=== PATIENT | male | born 1990 | race Caucasian/White ===

== ENCOUNTER 2020-02-28 07:23 | Emergency (ER) | payer OTHER, SELFPAY ==
[2020-02-28 08:19] LABS: Urine Blood NEGATIVE (NEG); Urine Glucose NEGATIVE (NEG); Urine Protein NEGATIVE (NEG)
[2020-02-28 08:21] LABS: Urine Amorphous Sediment 1+ /HPF (NONE SEEN); Urine Bacteria NONE SEEN /HPF (NONE SEEN); Urine Culture Reflex Order NOT NEEDED; Urine RBC <5 /HPF (NONE SEEN)
--- NOTE | 2020-02-28 08:56 | RAD REPORT ---
EXAM DESCRIPTION: US - Scrotum Testicles - 02/28/2020 8:43 am CLINICAL HISTORY: left scrotal pressure Left-sided testicular pain and swelling. COMPARISON: SCROTUM TESTICLES dated 12/09/2011 FINDINGS: The right testicle 4.2 x 3.1 x 2.0 cm. No intratesticular masses or evidence of testicular torsion. The left testicle 4.0 x 3.2 x 2.1 cm. No intratesticular masses or evidence of testicular torsion. Both epididymides are normal in size and appearance. No pathologic fluid collections. IMPRESSION: Unremarkable study.
[2020-02-28 09:01] LABS: Basophils % 1.1 % (0-1.3); Hematocrit 48.5 % (39.6-49.0); Lymphocytes % 27.4 % (15.3-44.8); MPV 9.1 fL (7.6-11.3); RBC Red Blood Cell Count 5.19 M/uL (4.33-5.43)
[2020-02-28 09:21] LABS: ALT/SGPT 47 U/L (12-78); AST/SGOT 30 U/L (15-37); Albumin 4.5 g/dL (3.4-5.0); Alkaline Phosphatase 69 U/L (45-117); BUN Blood Urea Nitrogen 12 mg/dL (7-18); Bicarbonate 29 mmol/L (21-32); Bilirubin Direct 0.2 mg/dL (0-0.2); Bilirubin Total 0.6 mg/dL (0.2-1.0); Glucose Level 105 mg/dL (74-106); Lipase 124 U/L (73-393); Potassium 4.3 mmol/L (3.5-5.1); Protein, Total 8.6 g/dL (6.4-8.2); Sodium Level 140 mmol/L (136-145)
--- NOTE | 2020-02-28 09:48 | RAD REPORT ---
EXAM DESCRIPTION: CTAbdomen Pelvis W Contrast - 02/28/2020 9:11 am CLINICAL HISTORY: Abdominal pain. lower abd pain COMPARISON: No comparisons TECHNIQUE: Biphasic CT imaging of the abdomen and pelvis was performed with 100 ml non-ionic IV cont rast. All CT scans are performed using dose optimization technique as appropriate and may include automated exposure control or mA/KV adjustment according to patient size. FINDINGS: The lung bases are clear. The liver, spleen, pancreas, adrenal glands and kidneys are within normal limits. No bowel obstruction, free air, free fluid or abscess. Mild stool is present in the colon. The append ix is normal. No evidence of significant lymphadenopathy. No suspicious bony findings. IMPRESSION: No acute intra-abdominal or pelvic finding.
--- NOTE | 2020-02-28 09:52 | EDPHYS ---
Physician Documentation [facility] Name: Zackary Aldana Jr Age: 29 yrs Sex: Male : 1990 Arrival Date: 02/28/2020 Time: 07:26 Bed 19 Private MD: ED Physician Vinod Mcneal HPI: 02/27 07:52 This 29 yrs old Male presents to ER via Unassigned with complaints of rn Abdominal Pain. 07:52 The patient presents with abdominal pain in the lower abdomen. Onset: The rn symptoms/episode began/occurred 2 day(s) ago. The symptoms radiate to pelvis. The symptoms are described as achy, dull. Modifying factors: The symptoms are alleviated by nothing, the symptoms are aggravated by bending over, bowel movement. Severity of pain: At its worst the pain was mild in the emergency department the pain has improved. The patient has experienced similar episodes in the past. Reports intermittent lower abd and left scrotal pain, dull, began 2 days ago. No fever/trauma/diarrhea/vomiting. No scrotal swelling. Reports when bends over and has bowel movement it worsens. No urinary problems. Has had several times before with neg scrotal u/s and w/u. . Historical: - Allergies: 07:56 No Known Allergies; ss - Home Meds: 07:56 None [Active]; ss - PMHx: 07:56 None; ss - PSHx: 07:56 None; ss - Immunization history:: Adult Immunizations up to date. - Social history:: Smoking status: Patient denies any tobacco usage or history of. - Family history:: not pertinent. - Hospitalizations: : No recent hospitalization is reported. ROS: 07:52 Constitutional: Negative for fever, chills, and weight loss, Eyes: Negative for injury, rn pain, redness, and discharge, Neck: Negative for injury, pain, and swelling, Cardiovascular: Negative for chest pain, palpitations, and edema, Respiratory: Negative for shortness of breath, cough, wheezing, and pleuritic chest pain, Abdomen/GI: Negative for nausea, vomiting, diarrhea, and constipation, : Negative for injury, bleeding, discharge, and swelling, MS/Extremity: Negative for injury and deformity, Skin: Negative for injury, rash, and discoloration, Neuro: Negative for headache, weakness, numbness, tingling, and seizure. Exam: 07:52 Constitutional: This is a well developed, well nourished patient who is awake, alert, rn and in no acute distress. Cardiovascular: Regular rate and rhythm. No pulse deficits. Respiratory: Speaking full sentences, unlabored Abdomen/GI: soft, non-tender, no masses Skin: Warm, dry Vital Signs: 07:52 BP 142 / 86; Pulse 74; Resp 15; Pulse Ox 100% on R/A; Weight 72.57 kg; Height 5 ft. 7 ss in. (170.18 cm); Pain 3/10; 08:55 Temp 98.8(TE); ss 09:43 BP 135 / 79; Pulse 74; Resp 15; Pulse Ox 99% ; Pain 0/10; jl7 07:52 Body Mass Index 25.06 (72.57 kg, 170.18 cm) ss MDM: 07:28 Patient medically screened. rn 09:50 Differential diagnosis: diverticulitis, non-specific abd pain, Testicular Torsion, rn Ureterolithiasis, hernia, varicocele, hydrocele, epididymitis. Data reviewed: vital signs, nurses notes, lab test result(s), radiologic studies, CT scan, ultrasound, and as a result, I will discharge patient. Counseling: I had a detailed discussion with the patient and/or guardian regarding: the historical points, exam findings, and any diagnostic results supporting the discharge/admit diagnosis, lab results, radiology results, the need for outpatient follow up, to return to the emergency department if symptoms worsen or persist or if there are any questions or concerns that arise at home. Response to treatment: the patient's symptoms have mildly improved after treatment, and as a result, I will discharge patient. Special discussion: Based on the patient's Hx, exam, and Dx evaluation, there is no indication for emergent surgery or inpatient Tx. It is understood by the patient/guardian that if the Sx's persist or worsen they need to return immediately for re-evaluation. I discussed with the patient/guardian in detail that at this point there is no indication for admission to the hospital. It is understood, however, that if the symptoms persist or worsen the patient needs to return immediately for re-evaluation. ED course: No acute findings CT abdomen or u/s scrotum, unremarkable lab results. Will dc home. . 02/27 07:51 Order name: Basic Metabolic Panel; Complete Time: 09:23 rn 02/27 07:51 Order name: CBC with Diff; Complete Time: 09:23 rn 02/27 07:51 Order name: Hepatic Function; Complete Time: 09:23 rn 02/27 07:51 Order name: Lipase; Complete Time: 09:23 rn 02/27 07:51 Order name: Urine Microscopic Only; Complete Time: 08:54 rn 02/27 08:07 Order name: Urine Dipstick--Ancillary (enter results); Complete Time: 08:54 02/27 07:51 Order name: IV Saline Lock; Complete Time: 09:02 rn 02/27 07:51 Order name: Labs collected and sent; Complete Time: 09: rn 02/27 07:51 Order name: CT Abd/Pelvis - IV Contrast Only; Complete Time: 09:52 rn 02/27 07:51 Order name: US Scrotum Testicles; Complete Time: 09:23 rn 02/27 07:51 Order name: Urine Dipstick-Ancillary (obtain specimen); Complete Time: 08:02 rn Administered Medications: No medications were administered Disposition: 02/28/20 09:51 Discharged to Home. Impression: Lower abdominal pain, unspecified. - Condition is Stable. - Discharge Instructions: Abdominal Pain, Adult, Pain Without a Known Cause. - Medication Reconciliation Form, Thank You Letter, Antibiotic Education, Prescription Opioid Use form. - Follow up: Private Physician; When: As needed; Reason: Recheck today's complaints, Re-evaluation by your physician. - Problem is new. - Symptoms have improved. Signatures: Dispatcher [employer] EDIN Vinod Mcneal MD MD rn Smirch, Shelby, RN RN ss Leal, Jahala, RN RN jl7 Corrections: (The following items were deleted from the chart) 07:54 07:52 Constitutional: Negative for fever, chills, and weight loss, Eyes: Negative for rn injury, pain, redness, and discharge, Neck: Negative for injury, pain, and swelling, Cardiovascular: Negative for chest pain, palpitations, and edema, Respiratory: Negative for shortness of breath, cough, wheezing, and pleuritic chest pain, Abdomen/GI: Negative for nausea, vomiting, diarrhea, and constipation, MS/Extremity: Negative for injury and deformity, Skin: Negative for injury, rash, and discoloration, Neuro: Negative for headache, weakness, numbness, tingling, and seizure, rn 10:01 09:51 02/28/2020 09:51 Discharged to Home. Impression: Lower abdominal pain, jl7 unspecified. Condition is Stable. Forms are Medication Reconciliation Form, Thank You Letter, Antibiotic Education, Prescription Opioid Use. Follow up: Private Physician; When: As needed; Reason: Recheck today's complaints, Re-evaluation by your physician. Problem is new. Symptoms have improved. rn
--- NOTE | 2020-02-28 09:52 | ER ---
Nurse's Notes [facility] Name: Zackary Aldana Jr Age: 29 yrs Sex: Male : 1990 Arrival Date: 02/28/2020 Time: 07:26 Bed 19 Private MD: Diagnosis: Lower abdominal pain, unspecified Presentation: 02/27 07:52 Chief complaint: Patient states: lower abd tenderness x 5 days that has become worse ss over the past 2 days. Pt reports when he tries to have a BM, he feels more pain in his L testicle. Denies N/V/D. Coronavirus screen: Client denies travel out of the [place] in the last 14 days. At this time, the client does not indicate any symptoms associated with coronavirus-19. Ebola Screen: Patient denies exposure to infectious person. Patient denies travel to an Ebola-affected area in the 21 days before illness onset. Initial Sepsis Screen: Does the patient meet any 2 criteria? No. Patient's initial sepsis screen is negative. Does the patient have a suspected source of infection? No. Patient's initial sepsis screen is negative. Risk Assessment: Do you want to hurt yourself or someone else? Patient reports no desire to harm self or others. Onset of symptoms was February 23, 2020. 07:52 Method Of Arrival: Ambulatory ss 07:52 Acuity: NOEMI 3 ss Historical: - Allergies: 07:56 No Known Allergies; ss - Home Meds: 07:56 None [Active]; ss - PMHx: 07:56 None; ss - PSHx: 07:56 None; ss - Immunization history:: Adult Immunizations up to date. - Social history:: Smoking status: Patient denies any tobacco usage or history of. - Family history:: not pertinent. - Hospitalizations: : No recent hospitalization is reported. Screenin:02 Abuse screen: Denies threats or abuse. Denies injuries from another. Nutritional ss screening: No deficits noted. Tuberculosis screening: Never had TB. Fall Risk None identified. Assessment: 07:55 General: Appears in no apparent distress. comfortable, Behavior is calm, cooperative. ss Pain: Complains of pain in right lower quadrant and left lower quadrant Pain currently is 2 out of 10 on a pain scale. Quality of pain is described as aching, tender, Pain began 5 days ago, has become worse in the past 2 days Is intermittent, Aggravated by pain radiates to L testicle, is worse while having a BM. Neuro: Level of Consciousness is awake, alert, obeys commands, Oriented to person, place, time, situation, Loss Prevention Investigator are equal bilaterally Moves all extremities. Full function Gait is steady. Cardiovascular: Capillary refill < 3 seconds is brisk in bilateral fingers. Respiratory: Airway is patent Respiratory effort is even, unlabored, Respiratory pattern is regular, symmetrical. GI: Bowel sounds present X 4 quads. Abd is soft X 4 quads Abdomen is tender to palpation in right lower quadrant and left lower quadrant. : Denies burning with urination, discharge, inability to void, urinary frequency. EENT: Oral mucosa is moist. Derm: Skin is intact, is healthy with good turgor, Skin is pink, warm \T\ dry. normal. Musculoskeletal: Circulation, motion, and sensation intact. Range of motion: intact in all extremities, Swelling absent. 08:02 Reassessment: Pt to US VIA wheelchair. Will obtain lab specimens and IV access when he ss returns to exam room. 08:55 Reassessment: Pt back from US. IV access obtained. Labs sent. Pt to CT now VIA wheelchair. 09:43 Reassessment: Patient appears in no apparent distress at this time. Patient and/or jl7 family updated on plan of care and expected duration. Pain level reassessed. Patient is alert, oriented x 3, equal unlabored respirations, skin warm/dry/pink. Patient denies pain at this time. Vital Signs: 07:52 BP 142 / 86; Pulse 74; Resp 15; Pulse Ox 100% on R/A; Weight 72.57 kg; Height 5 ft. 7 ss in. (170.18 cm); Pain 3/10; 08:55 Temp 98.8(TE); ss 09:43 BP 135 / 79; Pulse 74; Resp 15; Pulse Ox 99% ; Pain 0/10; jl7 07:52 Body Mass Index 25.06 (72.57 kg, 170.18 cm) ED Course: 07:26 Patient arrived in ED. mr 07:28 Vinod Mcneal MD is Attending Physician. rn 07:50 Patient has correct armband on for positive identification. Bed in low position. Side rails up X 1. 07:52 Smirch, Gloria, RN is Primary Nurse. ss 07:54 Triage completed. ss 07:56 Arm band placed on right wrist. ss 08:33 US Scrotum Testicles In Process Unspecified. EDMS 08:55 Inserted saline lock: 20 gauge in left antecubital area, using aseptic technique. Blood ss collected. 09:03 No provider procedures requiring assistance completed. ss 09:11 CT Abd/Pelvis - IV Contrast Only In Process Unspecified. EDMS 10:00 IV discontinued, intact, bleeding controlled, No redness/swelling at site. Pressure jl7 dressing applied. Administered Medications: No medications were administered Outcome: 09:51 Discharge ordered by . rn 10:00 Discharged to home ambulatory. jl7 10:00 Condition: stable 10:00 Discharge instructions given to patient, Instructed on discharge instructions, follow up and referral plans. Demonstrated understanding of instructions, follow-up care. 10:01 Patient left the ED. jl7 Signatures: Dispatcher [employer] EDPR Phoebe Leal Roman, MD MD rn Smirch, Shelby, RN RN Estefany Martinez RN RN jl7
[2020-02-28 10:08] VITALS: TEMP 98.8
[2020-02-28 10:10] VITALS: BP 135/79; O2SAT 99
== END 2020-02-28 10:01 | disposition home or self-care (01) ==
LOC: ER 07:23
DX: R10.30 Lower abdominal pain, unspecified (principal)
CPT/HCPCS: 36415; 74177; 76870; 80048; 80076; 81003; 81015; 82565; 83690; 85025; 99283; Q9967

== ENCOUNTER 2022-02-26 17:16 | Emergency (ER) | payer SELFPAY ==
[2022-02-26] MEDS ORDERED: NA CHLORIDE 0.9% 1,000 ML ONE ×2 (18:03→18:31)
[2022-02-26 18:05] LABS: Urine Blood Negative (Negative); Urine Glucose Negative (Negative); Urine Protein Negative (Negative); Urine Specific Gravity <=1.005 (1.005-1.030); Urine pH 5.5 (5.0-7.0)
[2022-02-26 18:21] LABS: Absolute Lymphocytes (CBC) 1.1 K/uL (0.7-4.9); Hematocrit 44.6 % (39.6-49.0); MCV 91.9 fL (80-100); MPV 8.9 fL (7.6-11.3); RBC Red Blood Cell Count 4.85 M/uL (4.33-5.43)
--- NOTE | 2022-02-26 18:23 | RAD REPORT ---
EXAM DESCRIPTION: CT - Stone Protocol - 02/26/2022 6:14 pm CLINICAL HISTORY: Flank pain. LLQ and left flank pain COMPARISON: Abdomen Pelvis W Contrast dated 02/28/2020 TECHNIQUE: Axial images were obtained without oral or IV contrast. Lack of contrast limits solid org an and vascular assessment. The [id number] spans the entirety of the system partially obscuring uppermost abdomen and lung bases. Coronal reformatted images were obtained and reviewed. All CT scans are performed using dose optimization technique as appropriate and may include automated exposure control or mA/KV adjustment according to patient size. FINDINGS: The lower lung pandey are clear. Imaged portions of the liver and spleen show no suspicious findings on non-contrast imaging. The panc reas and adrenal glands are normal. No pathologic lymphadenopathy in the abdomen or pelvis. No urinary tract stones or obstructive uropathy. No bowel obstruction, free air, free fluid or abscess. Normal appendix noted. No significant bony abnormality. IMPRESSION: No urinary tract stones or obstructive uropathy.
[2022-02-26] MEDS ORDERED: Meropenem 1000 MG/VIAL IV ONE (18:31)
[2022-02-26] MEDS ORDERED: NA CHLORIDE 0.9% 100 ML ONE (18:31)
[2022-02-26] MEDS ORDERED: FAMOTIDINE 20 MG/2 ML VIAL IV ONE (18:32)
[2022-02-26 18:47] LABS: Albumin 4.9 g/dL (3.4-5.0); Bilirubin Total 1.2 mg/dL (0.2-1.0); Protein, Total 8.8 g/dL (6.4-8.2)
[2022-02-26 18:50] LABS: Potassium 2.9 mmol/L (3.5-5.1)
[2022-02-26] MEDS ORDERED: POTASSIUM CL SA 10 MEQ TAB PO ONE (19:48)
[2022-02-26] MEDS ORDERED: KCL 20 MEQ/100 mL IVPB 100 ML IV ONE (19:48)
[2022-02-26 21:54] LABS: Potassium 3.8 mmol/L (3.5-5.1)
--- NOTE | 2022-02-26 22:09 | EDPHYS ---
Physician Documentation [facility] Name: Zackary Aldana Jr Age: 31 yrs Sex: Male : 1990 Arrival Date: 02/26/2022 Time: 17:19 Bed 11 Private MD: PLACIDO Physician Abdi Osborn HPI: 02/27 00:33 This 31 yrs old Male presents to ER via Ambulatory with complaints of kb Abdominal Pain, Back Pain, Shortness Of Breath, Vision Problem. 00:33 The patient presents with abdominal pain in the left lower quadrant. Onset: The kb symptoms/episode began/occurred yesterday. The symptoms radiate to the left flank. Associated signs and symptoms: Pertinent positives: nausea. The symptoms are described as constant. Modifying factors: The symptoms are alleviated by nothing, the symptoms are aggravated by nothing. Severity of pain: At its worst the pain was moderate in the emergency department the pain is unchanged. The patient has not experienced similar symptoms in the past. The patient has not recently seen a physician. Patient reports muscle cramps, headache, dizziness, nausea and left lower quadrant/left flank pain that started yesterday. Symptoms are worse today. States he works out in the heat, yesterday was his first day back at work after being off for a month.. Historical: - Allergies: 02/26 17:31 No Known Allergies; tw2 - Home Meds: 17:31 None [Active]; tw2 - PMHx: 17:31 None; tw2 - PSHx: 17:31 None; tw2 - Immunization history:: Client reports receiving the 2nd dose of the Covid vaccine. - Social history:: Smoking status: Patient reports the use of cigarette tobacco products, denies chronic smoking, but will smoke occasionally, Patient uses alcohol, only on a social basis. ROS: 02/27 00:32 Constitutional: Negative for fever, chills, and weight loss. kb Abdomen/GI: Positive for abdominal pain, nausea. MS/extremity: Positive for muscle cramps. Neuro: Positive for dizziness, headache. All other systems are negative. Exam: 00:31 Constitutional: This is a well developed, well nourished patient who is awake, alert, kb and in no acute distress. Head/Face: Normocephalic, atraumatic. ENT: Moist Mucous membranes Cardiovascular: Regular rate and rhythm with a normal S1 and S2. No gallops, murmurs, or rubs. No pulse deficits. Respiratory: Respirations even and unlabored. No increased work of breathing. Talking in full sentences Skin: Warm, dry with normal turgor. Normal color. MS/ Extremity: Pulses equal, no cyanosis. Neurovascular intact. Full, normal range of motion. Neuro: Awake and alert, GCS 15, oriented to person, place, time, and situation. Moves all extremities. Normal gait. Psych: Awake, alert, with orientation to person, place and time. Behavior, mood, and affect are within normal limits. 00:31 Abdomen/GI: Inspection: abdomen appears normal, Bowel sounds: normal, Palpation: soft, in all quadrants, mild abdominal tenderness, in the left lower quadrant. 00:31 Back: CVA tenderness, that is mild, is noted on the left. Vital Signs: 02/26 17:27 BP 146 / 99; Pulse 95; Resp 17; Temp 99.5(TE); Pulse Ox 100% on R/A; tw2 21:28 BP 134 / 87; Pulse 82; Resp 18; Pulse Ox 100% on R/A; Pain 2/10; tw5 17:27 under hat tw2 MDM: 17:29 Patient medically screened. kb 02/27 00:31 Data reviewed: vital signs, nurses notes. Data interpreted: Pulse oximetry: on room air kb is 100 %. Interpretation: normal. Counseling: I had a detailed discussion with the patient and/or guardian regarding: the historical points, exam findings, and any diagnostic results supporting the discharge/admit diagnosis, lab results, the need for outpatient follow up, a family practitioner, to return to the emergency department if symptoms worsen or persist or if there are any questions or concerns that arise at home. ED course: Pt states he is feeling 100 times better after treatment. 02/26 17:32 Order name: CBC with Diff; Complete Time: 18:30 kb 02/26 17:32 Order name: CMP; Complete Time: 18:51 kb 02/26 17:32 Order name: Lipase; Complete Time: 18:51 kb 02/26 17:32 Order name: CPK; Complete Time: 18:51 kb 02/26 18:06 Order name: Urine Dipstick-Ancillary; Complete Time: 18:08 EDMS 02/26 17:32 Order name: IV Saline Lock; Complete Time: 18:08 kb 02/26 17:32 Order name: Labs collected and sent; Complete Time: 18:08 kb 02/26 17:32 Order name: CT Stone Protocol; Complete Time: 18:30 kb 02/26 21:38 Order name: Basic Metabolic Panel; Complete Time: 22:07 EDGA 02/26 18:52 Order name: EKG - Nurse/Tech kb Administered Medications: 02/26 17:08 Drug: NS 0.9% 1000 ml Route: IV; Rate: 1 bolus; Site: right antecubital; kb3 22:23 Follow up: Response: No adverse reaction; IV Status: Completed infusion; IV Intake: tw5 1000ml 19:44 Drug: Potassium Chloride 20 mEq Route: IV; Rate: calculated rate; Site: right tw5 antecubital; 22:23 Follow up: IV Status: Completed infusion; IV Intake: 100ml tw5 19:45 Drug: Potassium Chloride 40 mEq Route: PO; tw5 22:23 Follow up: Response: No adverse reaction tw5 Disposition Summary: 02/26/22 22:08 Discharge Ordered Location: Home kb Condition: Stable kb Diagnosis - Dehydration kb - Hypokalemia kb Followup: kb - With: Emergency Department - When: As needed - Reason: Worsening of condition Followup: kb - With: Private Physician - When: 2 - 3 days - Reason: Recheck today's complaints, Continuance of care, Re-evaluation by your physician Discharge Instructions: - Heat Exhaustion kb - Dehydration, Adult, [id number] kb - Discharge Summary Sheet tw2 - Hypokalemia kb Forms: - Medication Reconciliation Form kb - Thank You Letter kb - Work release form tw2 - Antibiotic Education kb - Prescription Opioid Use kb Signatures: Dispatcher [employer] Lubna Goss FNP-C ELECTRONIC WARF[employer] LINGUIST-Mary Beth Baeza, RN RN tw2 Maral Pascal tw5 Julianna Chun, RN RN kb3
--- NOTE | 2022-02-26 22:09 | ER ---
Nurse's Notes [facility] Name: Zackary Aldana Jr Age: 31 yrs Sex: Male : 1990 Arrival Date: 02/26/2022 Time: 17:19 Bed 11 Private MD: Diagnosis: Dehydration;Hypokalemia Presentation: 02/26 17:27 Chief complaint: Patient states: so yesterday i had some symptoms, my whole body was tw2 cramping. the day before that i was getting a sharp pain on my lower LEFT abdomen and it is radiating to my back. i feel dizzy and i have a headache and i feel nauseous. i think it might be a kidney stones because i drink a lot of sodas. Coronavirus screen: At this time, the client does not indicate any symptoms associated with coronavirus-19. Ebola Screen: Patient denies travel to an Ebola-affected area in the 21 days before illness onset. Initial Sepsis Screen: Does the patient meet any 2 criteria? No. Patient's initial sepsis screen is negative. Does the patient have a suspected source of infection? No. Patient's initial sepsis screen is negative. Risk Assessment: Do you want to hurt yourself or someone else? Patient reports no desire to harm self or others. Note provider BIANCA Churchill in triage room performing assessment at this time. Onset of symptoms was February 26, 2022. 17:27 Acuity: NOEMI 3 tw2 17:27 Method Of Arrival: Ambulatory tw2 Triage Assessment: 17:32 General: Appears in no apparent distress. Behavior is calm, cooperative, appropriate tw2 for age. Pain: Complains of pain in left lower quadrant Pain radiates to back. Neuro: Reports dizziness, headache. GI: Reports nausea. Historical: - Allergies: 17:31 No Known Allergies; tw2 - Home Meds: 17:31 None [Active]; tw2 - PMHx: 17:31 None; tw2 - PSHx: 17:31 None; tw2 - Immunization history:: Client reports receiving the 2nd dose of the Covid vaccine. - Social history:: Smoking status: Patient reports the use of cigarette tobacco products, denies chronic smoking, but will smoke occasionally, Patient uses alcohol, only on a social basis. Screenin:05 Abuse screen: Denies threats or abuse. Denies injuries from another. Nutritional kb3 screening: No deficits noted. Tuberculosis screening: No symptoms or risk factors identified. Fall Risk None identified. Assessment: 17:55 General: Appears in no apparent distress. comfortable, Behavior is calm, cooperative, kb3 [facility], ambulatory without distress. Pt to restroom, urine specimen collected. Pt reports generalized muscle cramping that began yesterday afternoon while at work. States he began having LLQ abdominal pain radiating into his left flank this morning that progressively got worse throughout the day. Denies N/V/D/C/fever. 18:40 General: Pt resting comfortably. Ambulatory to the restroom without difficulty. kb3 19:44 Reassessment: Patient appears in no apparent distress at this time. Patient and/or tw5 family updated on plan of care and expected duration. Pain level reassessed. 21:28 Reassessment: Patient states feeling better. Patient states symptoms have improved. tw5 22:24 GI: Bowel sounds present X 4 quads. Abd is soft and non tender X 4 quads. tw5 Vital Signs: 17:27 BP 146 / 99; Pulse 95; Resp 17; Temp 99.5(TE); Pulse Ox 100% on R/A; tw2 21:28 BP 134 / 87; Pulse 82; Resp 18; Pulse Ox 100% on R/A; Pain 2/10; tw5 17:27 under hat tw2 ED Course: 17:19 Patient arrived in ED. mr 17:27 Arm band placed on. tw2 17:29 [facility]na Hunter [facility]C [facility] kb 17:29 Abdi Osborn MD is Attending Physician. kb 17:30 Triage completed. tw2 17:52 Julianna Chun, RN is Primary Nurse. kb3 18:05 Patient has correct armband on for positive identification. Placed in gown. Bed in low kb3 position. Call light in reach. Side rails up X 1. Warm blanket given. 18:05 No provider procedures requiring assistance completed. Inserted saline lock: 20 gauge kb3 in right antecubital area, using aseptic technique. Blood collected. 18:[address] kb3 18:16 CT Stone Protocol In Process Unspecified. EDMS 18:16 CBC with Diff Sent. kc6 18:16 CMP Sent. kc6 18:16 Lipase Sent. kc6 18:16 CPK Sent. kc6 21:41 Basic Metabolic Panel Sent. tw5 22:23 BMP Sent. tw5 22:24 IV discontinued, intact, bleeding controlled, No redness/swelling at site. Pressure tw5 dressing applied. Administered Medications: 17:08 Drug: NS 0.9% 1000 ml Route: IV; Rate: 1 bolus; Site: right antecubital; kb3 22:23 Follow up: Response: No adverse reaction; IV Status: Completed infusion; IV Intake: tw5 1000ml 19:44 Drug: Potassium Chloride 20 mEq Route: IV; Rate: calculated rate; Site: right tw5 antecubital; 22:23 Follow up: IV Status: Completed infusion; IV Intake: 100ml tw5 19:45 Drug: Potassium Chloride 40 mEq Route: PO; tw5 22:23 Follow up: Response: No adverse reaction tw5 Medication: 18:05 VIS not applicable for this client. kb3 Intake: 22:23 IV: 100ml; Total: 100ml. tw5 22:23 IV: 1000ml; Total: 1100ml. tw5 Outcome: 22:08 Discharge ordered by MD. kb 22:24 Discharged to home ambulatory. tw5 22:24 Condition: improved 22:24 Discharge instructions given to patient, Instructed on discharge instructions, follow up and referral plans. Demonstrated understanding of instructions, follow-up care. 22:24 Patient left the ED. tw5 Signatures: Dispatcher [employer] EDMS Lubna Hunter, LINOLEUM LAYER HELPERAnuC LINOLEUM LAYER HELPER-Ckb LealPhoebe mr Mary Beth Nieto RN RN tw2 Maral Pascal tw5 Pascale [place] kc6 Julianna Chun, RN RN kb3 Corrections: (The following items were deleted from the chart) 18:07 17:55 General: Appears in no apparent distress. comfortable, Behavior is calm, kb3 cooperative, Received care of pt from [facility], ambulatory without distress. Pt to restroom, urine specimen collected.. kb3 18:43 18:40 General: Pt resting comfortably, no needs at this time. kb3 kb3
[2022-02-28 07:14] VITALS: TEMP 99.5; O2SAT 100
[2022-02-28 07:16] VITALS: BP 134/87
== END 2022-02-26 22:24 | disposition home or self-care (01) ==
LOC: ER 17:16
DX: E86.0 Dehydration (principal); E87.6 Hypokalemia; F17.210 Nicotine dependence, cigarettes, uncomplicated
CPT/HCPCS: 36415; 74176; 76377; 80048; 80053; 81003; 82550; 83690; 85025; 96361; 96365; 96366; 99284; J2185; J3480; J7030

== ENCOUNTER 2022-07-09 14:58 | Emergency (ER) | payer SELFPAY ==
--- OUTSIDE RECORDS SUMMARY | 2022-07-09 15:01 | XMS REPORT | Continuity of Care Document ---
:1990 Author Organization [facility] t Address [address] [place] [address] Care Team Providers Name Role Phone PCP, PATIENT DOES NOT HAVE A Primary Care Physician Unavaila Garry Terry Attending Clinician Unavailable Garry Mota Attending Clinician Garry BENAVIDEZ Admitting Clinician Unavailable Payers Payer Name Policy Type Policy Number Effective Date Expiration Date S [facility] [id number] 2021 00:00:00 Problems Condition Condition Condition Status Onset Resolution Last Treating Co mments Source Name Details Category Date Date Treatment Clinician Date No known No known Disease Unive rs active active ity of problems problems [facility] Allergies, Adverse Reactions, Alerts Allergy Allergy Status Severity Reaction(s) Onset Inactive Treating Comm ents Source Name Type Date Date Clinician NO KNOWN Drug Active Univers ALLERGIE Class ity of S [facility] Social History Social Habit Start Date Stop Date Quantity Comments Source Exposure to 2022-04-17 2022-04-27 Not sure [facility] SARS-CoV-2 (event) 00:00:00 18:00:00 Medica l Branch [facility] [birth year] [facility] [place] [facility] 00:00:00 Medical Branch Smoking Status Start Date Stop Date Source Tobacco smoking consumption Univ [facility] unknown Branch Medications Ordered Filled Start Stop Current Ordering Indication Dosage Frequency Signature Comments Components Source Medication Medication Date Date Medication? Clinician (SIG) Name Name naproxen 2021-06 No 500mg 500 mg, Univ ers (NAPROSYN) 15 11-15 Oral, ity of tablet 500 03:00: 02:03 ONCE, 1 Hussein as mg 00 :00 dose, On Medical Wed Branch 04/27/22 at 2100, Routine naproxen 2021-06 Yes [id number] 500mg Take 1 U nivers (NAPROSYN) 1-14 tablet by ity of 500 mg 00:00: mouth in [place] tablet 00 the Medical morning Branch and 1 tablet in the evening. Take with meals. benzonatate 2021-06 Yes [id number] 200mg Take 1 Univers 200 mg 1-14 capsule by ity of capsule 00:00: mouth 3 [place] 00 (three) Medical times Branch daily as needed for Cough for up to 20 doses. magnesium 2021- No 2g 2 g, IV Univ ers sulfate in 02-27 Piggyback, it y of water 2 21:15: 21:24 Administer Hussein as gram/50 mL 00 :00 over 60 Medica l (4 %) Minutes, Branch infusion 2 ONCE, 1 g dose, On Wed02/27/22 at 1615, Routine NaCl 0.9% No 1000mL at 999 Uni vers (NS) bolus 02-27 mL/hr, ity of infusion 21:15: 21:59 1,000 mL, Hussein as 1,000 mL 00 :00 IV Medical Infusion, Branch ONCE, 1 dose, On Wed02/27/22 at 1615, STAT Vital Signs Vital Name Observation Time Observation Value Comments Source Systolic blood 2022-04-28 00:01:00 159 mm[Hg] Univer sity of pressure [facility] Diastolic blood 2022-04-28 00:01:00 92 mm[Hg] Unive rsity [facility] Heart rate 2022-04-28 00:01:00 81 /min [facility] Body temperature 2022-04-28 00:01:00 37.17 Adele [facility] Respiratory rate 2022-04-28 00:01:00 18 /min [facility] Body height 2022-04-28 00:01:00 170.2 cm [facility] Body weight 2022-04-28 00:01:00 73.936 kg [facility] BMI 2022-04-28 00:01:00 25.53 kg/m2 [facility] Oxygen saturation in 2022-04-28 00:01:00 98 /min [facility] Arterial blood by [facility] Pulse oximetry Branch Systolic blood 2022-02-27 19:12:00 152 mm[Hg] Univer sity of pressure [facility] Diastolic blood 2022-02-27 19:12:00 99 mm[Hg] [facility] Heart rate 2022-02-27 19:12:00 100 /min [facility] Body temperature 2022-02-27 19:12:00 37.06 Adele [facility] Respiratory rate 2022-02-27 19:12:00 18 /min [facility] Body height 2022-02-27 19:12:00 170.2 cm [facility] Body weight 2022-02-27 19:12:00 70.308 kg [facility] BMI 2022-02-27 19:12:00 24.28 kg/m2 [facility] Oxygen saturation in 2022-02-27 19:12:00 98 /min [facility] Arterial blood by [facility] Pulse oximetry Branch Procedures Procedure Date / Time Performing Clinician Source Performed XR CHEST 1 VW 2022-04-28 00:57:30 Garry Benavidez [facility] CONSENT/REFUSAL FOR 2022-04-27 23:58:30 Doctor Unassigned, No Un [facility] DIAGNOSIS AND TREATMENT Name [facility] URINE DRUG (IMMUNOASSAY) 2022-02-27 20:25:00 Garry Benavidez [facility] COMPREHENSIVE DRUG Medical [facility] SCREEN URINALYSIS 2022-02-27 20:08:00 Garry Benavidez [facility] COVID-19 (ID NOW RAPID 2022-02-27 19:40:00 Garry Benavidez [facility] TESTING) [facility] MAGNESIUM 2022-02-27 19:37:00 Garry Benavidez [facility] COMP. METABOLIC PANEL 2022-02-27 19:37:00 Garry Benavidez [facility] ([id number]) [facility] CBC WITH DIFF 2022-02-27 19:37:00 Lorne, K [facility] Branch HB ECG ROUTINE & RHYTHM 2022-02-27 19:29:25 Garry Benavidez [facility] NOTICE OF PRIVACY 2022-02-27 19:06:39 Doctor Unassigned, No [facility] [place] [place] CONSENT/REFUSAL FOR 2022-02-27 19:04:38 Doctor Unassigned, No [facility] Name [facility] Encounters Start End Encounter Admission Attending Care Care Encounter Source Date/Time Date/Time Type Type Clinicians Facility Department ID 2022-04-27 2022-04-27 Emergency X Garry BENAVIDEZ [facility] ERT [id number] Univers 18:02[facility]00 [facility] 2022-04-27 2022-04-27 Emergency Garry Benavidez [facility] [id number] Univers 18:02:00 20:09:00 Raven KEE [id number] i ty of [facility] [id number] [facility] [phone] [place] [id number] Branch 2022-02-27 2022-02-27 Emergency X Garry BENAVIDEZ [facility] ERT [id number] Univers 14:12:00 [facility]04[facility] 2022-02-27 2022-02-27 Emergency Garry Benavidez [facility] [id number] Univers 14:12:00 17:04:00 Raven KEE [id number] i ty [facility] [id number] [facility] [id number] [place] [address] Branch Results This patient has no known results.
[2022-07-09] MEDS ORDERED: KETOROLAC 30 MG/ML INJ ONE (15:36)
[2022-07-09] MEDS ORDERED: CYCLOBENZAPRINE 10 MG TAB ONE (15:36)
[2022-07-09] MEDS ORDERED: LIDOCAINE 4% PATCH ONE (15:36)
--- NOTE | 2022-07-09 16:21 | ER ---
Nurse's Notes [facility] Name: Zackary Aldana Jr Age: 31 yrs Sex: Male : 1990 Arrival Date: 07/09/2022 Time: 14:59 Bed 10 Private MD: Diagnosis: Low back pain;Strain of muscle, fascia and tendon of lower back Presentation: 07/09 15:04 Chief complaint: Patient states: "I picked up a couple heavy things at work and I went aa5 to bend down to cut a piece of metal when I heard a pop on my back". Pt c/o low back pain. Coronavirus screen: At this time, the client does not indicate any symptoms associated with coronavirus-19. Ebola Screen: Patient denies travel to an Ebola-affected area in the 21 days before illness onset. Initial Sepsis Screen: Does the patient meet any 2 criteria? HR > 90 bpm. Does the patient have a suspected source of infection? No. Patient's initial sepsis screen is negative. Risk Assessment: Do you want to hurt yourself or someone else? Patient reports no desire to harm self or others. Onset of symptoms was July 09, 2022. 15:04 Method Of Arrival: Ambulatory aa5 15:04 Acuity: NOEMI 3 aa5 Triage Assessment: 15:23 General: Appears uncomfortable, Behavior is calm, cooperative. Pain: Complains of pain ap3 in low back area. Neuro: Level of Consciousness is awake, alert, obeys commands, Oriented to person, place, time, situation. Cardiovascular: Patient's skin is warm and dry. Respiratory: Airway is patent Respiratory effort is even, unlabored. Musculoskeletal: Range of motion: intact in all extremities. Historical: - Allergies: 15:05 No Known Allergies; aa5 - PMHx: 15:05 None; aa5 - PSHx: 15:05 None; aa5 - Immunization history:: Adult Immunizations unknown. - Social history:: Smoking status: Patient reports the use of cigarette tobacco products, denies chronic smoking, but will smoke occasionally. Screenin:22 [facility] ED Fall Risk Assessment (Adult) History of falling in the last 3 months, ap3 including since admission No falls in past 3 months (0 pts). Abuse screen: Denies threats or abuse. Nutritional screening: No deficits noted. Tuberculosis screening: No symptoms or risk factors identified. Vital Signs: 15:04 BP 158 / 103; Pulse 86; Resp 20 S; Temp 98.9(TE); Pulse Ox 99% on R/A; Weight 75.75 kg aa5 (R); Height 5 ft. 7 in. (170.18 cm) (R); 15:04 Body Mass Index 26.16 (75.75 kg, 170.18 cm) aa5 ED Course: 14:59 Patient arrived in ED. am2 15:02 Corey Ludwig NP is PHCP. pm1 15:02 Earl Florian MD is Attending Physician. pm1 15:04 Arm band placed on. iw 15:05 Triage completed. aa5 15:18 Marielle Moore RN is Primary Nurse. ap3 15:23 Patient has correct armband on for positive identification. Bed in low position. Call ap3 light in reach. Side rails up X 1. Pulse ox on. NIBP on. Door closed. Noise minimized. 16:33 No provider procedures requiring assistance completed. Patient did not have IV access ap3 during this emergency room visit. Administered Medications: 15:38 Drug: Ketorolac 60 mg Route: IM; Site: right gluteus; ap3 16:19 Follow up: Response: No adverse reaction; Pain is unchanged, physician notified ap3 15:38 Drug: Flexeril (cyclobenzaprine) 10 mg Route: PO; ap3 16:19 Follow up: Response: No adverse reaction; Pain is unchanged, physician notified ap3 15:38 Drug: Lidoderm Patch 5 % (700 mg/patch) 1 patches Route: Topical; Site: affected area; ap3 16:19 Follow up: Response: No adverse reaction; Pain is unchanged, physician notified ap3 Medication: 15:23 VIS not applicable for this client. ap3 Outcome: 16:21 Discharge ordered by MD. pm1 16:34 Discharged to home ambulatory. ap3 16:34 Condition: good 16:34 Discharge instructions given to patient, Instructed on discharge instructions, follow up and referral plans. medication usage, Demonstrated understanding of instructions, follow-up care, medications, Prescriptions given X 4. 16:34 Patient left the ED. ap3 Signatures: Joann Saez RN RN Alecia Church RN RN aa5 Corey Ludwig NP PROM BURN OFF OPERATOR pm1 Marielle Luo am2 Marielle Moore, RN RN ap3
--- NOTE | 2022-07-09 16:21 | EDPHYS ---
Physician Documentation [facility] Name: Zackary Aldana Jr Age: 31 yrs Sex: Male : 1990 Arrival Date: 07/09/2022 Time: 14:59 Bed 10 Private MD: ED Physician Earl Florian HPI: 07/09 15:14 This 31 yrs old Male presents to ER via Ambulatory with complaints of Back pm1 Pain, Back Injury. 15:14 The patient presents with pain that is acute. The symptoms are located in the low back. pm1 Onset: The symptoms/episode began/occurred this morning. The pain does not radiate. Associated signs and symptoms: Pertinent negatives: dysuria, incontinence, numbness, weakness. The problem was sustained Patient was bending and lifting iron at work and then when he placed the iron on the saw horse to cut it and bent over he felt a pop to his lower back.. Modifying factors: the patient symptoms are aggravated by sitting, bending, twisting. Severity of symptoms: in the emergency department the symptoms are actually worse. reports similar muscle strain to abdominal muscles but not to the back. The patient has not recently seen a physician. Historical: - Allergies: 15:05 No Known Allergies; aa5 - PMHx: 15:05 None; aa5 - PSHx: 15:05 None; aa5 - Immunization history:: Adult Immunizations unknown. - Social history:: Smoking status: Patient reports the use of cigarette tobacco products, denies chronic smoking, but will smoke occasionally. ROS: 15:14 Constitutional: Negative for fever, chills, and weight loss, Cardiovascular: Negative pm1 for chest pain, palpitations, and edema, Respiratory: Negative for shortness of breath, cough, wheezing, and pleuritic chest pain. 15:14 : Negative for injury, bleeding, discharge, and swelling, MS/Extremity: Negative for injury and deformity, Skin: Negative for injury, rash, and discoloration. 15:14 Neuro: Negative for headache, weakness, numbness, tingling, and seizure. 15:14 Back: Positive for of the right low back, pain. 15:14 All other systems are negative. Exam: 15:14 Constitutional: This is a well developed, well nourished patient who is awake, alert, pm1 and in no acute distress. Head/Face: Normocephalic, atraumatic. 15:14 Skin: Warm, dry with normal turgor. Normal color with no rashes, no lesions, and no evidence of cellulitis. MS/ Extremity: Pulses equal, no cyanosis. Neurovascular intact. Full, normal range of motion. 15:14 Eyes: Exam is negative for acute changes, Extraocular movements: no acute changes. 15:14 ENT: Exam is negative for acute changes, Mouth: no acute changes, Lips: normal, moist, Oral mucosa: normal, pink and intact, moist. 15:14 Back: pain, that is moderate, of the right low back, normal spinal alignment noted, muscle spasm, is appreciated in the right low back, negative for any bony, spinous tenderness. 15:14 Neuro: Exam negative for acute changes, Orientation: is normal, Mentation: is normal, Motor: is normal, moves all fours, Sensation: no obvious gross deficits. Vital Signs: 15:04 BP 158 / 103; Pulse 86; Resp 20 S; Temp 98.9(TE); Pulse Ox 99% on R/A; Weight 75.75 kg aa5 (R); Height 5 ft. 7 in. (170.18 cm) (R); 15:04 Body Mass Index 26.16 (75.75 kg, 170.18 cm) aa5 MDM: 15:14 ED course: Patient offered x-ray lower back. Patient refused because it reminds him of pm1 pulled muscle in his abdomen and is here for acute pain management. 15:14 Data reviewed: vital signs. pm1 15:14 Differential diagnosis: ruptured disc, spinal injury, sprain, vertebral fracture. pm1 15:14 Test considered but Not performed: X-ray: Patient offered x-ray and its benefits and pm1 risks. Patient refused. 15:15 Patient medically screened. pm1 16:19 Counseling: I had a detailed discussion with the patient and/or guardian regarding: the pm1 historical points, exam findings, and any diagnostic results supporting the discharge/admit diagnosis, the need for outpatient follow up, to return to the emergency department if symptoms worsen or persist or if there are any questions or concerns that arise at home. 16:19 ED course: Patient reports minimal decrease in pain with medications given in the ER pm1 but patient is not able to get a ride if I give him narcotics. Patient reports codeine worked well in the past and is fine with getting a prescription for it. 16:24 ED course: [place]MP[place] reviewed. No prescriptions found. pm1 Administered Medications: 15:38 Drug: Ketorolac 60 mg Route: IM; Site: right gluteus; ap3 16:19 Follow up: Response: No adverse reaction; Pain is unchanged, physician notified ap3 15:38 Drug: Flexeril (cyclobenzaprine) 10 mg Route: PO; ap3 16:19 Follow up: Response: No adverse reaction; Pain is unchanged, physician notified ap3 15:38 Drug: Lidoderm Patch 5 % (700 mg/patch) 1 patches Route: Topical; Site: affected area; ap3 16:19 Follow up: Response: No adverse reaction; Pain is unchanged, physician notified ap3 Disposition: 17:04 I reviewed the patient's care provided by the Advanced Practice Provider and agree with [email or web address] the diagnosis and treatment plan. Disposition Summary: 07/09/22 16:21 Discharge Ordered Location: Home pm1 Problem: new pm1 Symptoms: have improved pm1 Condition: Stable pm1 Diagnosis - Low back pain pm1 - Strain of muscle, fascia and tendon of lower back pm1 Followup: pm1 - With: Emergency Department - When: As needed - Reason: Worsening of condition Followup: pm1 - With: Private Physician - When: 2 - 3 days - Reason: Recheck today's complaints, Continuance of care, Re-evaluation by your physician Discharge Instructions: - Discharge Summary Sheet pm1 - Acute Back Pain, Adult pm1 - Musculoskeletal Pain pm1 - Back Injury Prevention, [id number] pm1 Forms: - Medication Reconciliation Form pm1 - Thank You Letter pm1 - Antibiotic Education pm1 - Prescription Opioid Use pm1 - Work release form pm1 Prescriptions: - Lidoderm 5 % Topical adhesive patch,medicated - apply 1 patch by TRANSDERMAL route once daily As needed 12 hours on and 12 pm1 hours off in a 24 hour period; 30 patch; Refills: 0, Product Selection Permitted - Cyclobenzaprine 10 mg Oral Tablet - take 1 tablet by ORAL route every 8 hours As needed; 30 tablet; Refills: 0, pm1 Product Selection Permitted - Diclofenac Sodium 75 mg Oral Tablet Sustained Release - take 1 tablet by ORAL route 2 times per day; 30 tablet; Refills: 0, Product pm1 Selection Permitted - Tylenol-Codeine #3 300 mg-30 mg Oral - take 2 tablet by ORAL route every 6 hours As needed; 20 tablet; Refills: 0, pm1 Product Selection Permitted Signatures: Alecia Church, RN RN aa5 Corey Ludwig, [employer]IN [employer] DRIER TENDER pm1 Marielle Moore RN RN ap3 Earl Florian MD MD [email or web address]
[2022-07-09 16:39] VITALS: BP 158/103; TEMP 98.9; O2SAT 99
== END 2022-07-09 16:34 | disposition home or self-care (01) ==
LOC: ER 14:58
DX: S39.012A Strain of muscle, fascia and tendon of lower back, initial encounter (principal); F17.210 Nicotine dependence, cigarettes, uncomplicated
CPT/HCPCS: 96372; 99283; J2001

== ENCOUNTER 2025-03-07 13:00 | Emergency (ER) | payer SELFPAY ==
--- OUTSIDE RECORDS SUMMARY | 2025-03-07 13:03 | XMS REPORT | Continuity of Care Document ---
Author Name Unknown Address [address] [place] [address] [facility] Address [address] [place] [address] Care Team Providers Care Geosciences Faculty Member Name Role Phone PCP, UNKNOWN Primary Care Physician Unavailab Dave Lafleur Attending Clinician Unavailable Amaury Arevalo Attending Clinician Unavailable Garry BENAVIDEZ Attending Clinician Unavailable Garry Mota Attending Clinician Garry BENAVIDEZ Admitting Clinician Unavailable Payers Payer Name Policy Type Policy Number Effective Date Expirati on Date Source [facility] [id number] 2021 00:00:00 Problems Condition Name Condition Details Condition Category Status Onset Date Resolution Date Last Treatment Date Treating Clinician Comments Source No known active problems No known active problems Disease [facility] Allergies, Adverse Reactions, Alerts Allergy Name Allergy Type Status Severity Reaction(s) Onset Date Inactive Date Treating Clinician Comments Source No Known Drug Allergie s DA Active U - 00:00: 00 [facility] No Known Drug Allergie s DA Active U 07-11 00:00: 00 [facility] NO KNOWN ALLERGIE S Drug Class Active [facility] Social History Social Habit Start Date Stop Date Quantity Comments Source Exposure to SARS-CoV-2 (event) 2022-04-17 00:00:00 2022-04-27 18:00:00 Not sure [facility] Sex Assigned At 1990 00:00:00 1990 00:[birth year]:00 [facility] Smoking Status Start Date Stop Date Source Tobacco smoking consumption unknown [facility] Medications Ordered Medication Name Filled Medication Name Start Date Stop Date Current Medication? Ordering Clinician Indication Dosage Frequency Signature (SIG) Comments Components Source naproxen (NAPROSYN) tablet 500 mg 2021-06 03:00: 00 04-28 02:03 :00 No 500mg 500 mg, Oral, ONCE, 1 dose, On Wed04/27/22 at 2100, Routine [facility] naproxen (NAPROSYN) 500 mg tablet 2021-06 00:00: 00 Yes [id number] 500mg Take 1 tablet by mouth in the morning and 1 tablet in the evening. Take with meals. [facility] benzonatate 200 mg capsule 2021-06 00:00: 00 Yes [id number] 200mg Take 1 capsule by mouth 3 (three) times daily as needed for Cough for up to 20 doses. [facility] magnesium sulfate in water 2 gram/50 mL (4 %) infusion 2 g 02-27 21:15: 00 02-27 21:24 :00 No 2g 2 g, IV Piggyback, Administer over 60 Minutes, ONCE, 1 dose, On Wed02/27/22 at 1615, Routine [facility] NaCl 0.9% (NS) bolus infusion 1,000 mL 02-27 21:15: 00 02-27 21:59 :00 No 1000mL at 999 mL/hr, 1,000 mL, IV Infusion, ONCE, 1 dose, On Wed02/27/22 at 1615, STAT [facility] Vital Signs Vital Name Observation Time Observation Value Comments S ouranastasia Systolic blood pressure 2022-04-28 00:01:00 159 mm[Hg] [facility] Diastolic blood pressure 2022-04-28 00:01:00 92 mm[Hg] [facility] Heart rate 2022-04-28 00:01:00 81 /min Un[facility] Body temperature 2022-04-28 00:01:00 37.17 Adele [facility] Respiratory rate 2022-04-28 00:01:00 18 /min [facility] Body height 2022-04-28 00:01:00 170.2 cm [facility] Body weight 2022-04-28 00:01:00 73.936 kg [facility] BMI 2022-04-28 00:01:00 25.53 kg/m2 [facility] Oxygen saturation in Arterial blood by Pulse oximetry 2022-04-28 00:01:00 98 /min [facility] Systolic blood pressure 2022-02-27 19:12:00 152 mm[Hg] [facility] Diastolic blood pressure 2022-02-27 19:12:00 99 mm[Hg] [facility] Heart rate 2022-02-27 19:12:00 100 /min [facility] Body temperature 2022-02-27 19:12:00 37.06 Adele [facility] Respiratory rate 2022-02-27 19:12:00 18 /min [facility] Body height 2022-02-27 19:12:00 170.2 cm [facility] Body weight 2022-02-27 19:12:00 70.308 kg [facility] BMI 2022-02-27 19:12:00 24.28 kg/m2 [facility] Oxygen saturation in Arterial blood by Pulse oximetry 2022-02-27 19:12:00 98 /min [facility] Procedures Procedure Date / Time Performed Performing Clinician Source XR CHEST 1 VW 2022-04-28 00:57:30 Garry Benavidez [facility] CONSENT/REFUSAL FOR DIAGNOSIS AND TREATMENT 2022-04-27 23:58:30 Doctor Unassigned, [place] [facility] URINE DRUG (IMMUNOASSAY) - COMPREHENSIVE DRUG SCREEN 2022-02-27 20:25:00 Garry Benavidez [facility] URINALYSIS 2022-02-27 20:08:00 Garry Benavidez [facility] COVID-19 (ID NOW RAPID TESTING) 2022-02-27 19:40:00 Garry Benavidez [facility] MAGNESIUM 2022-02-27 19:37:00 Garry Benavidez [facility] COMP. METABOLIC PANEL (18704) 2022-02-27 19:37:00 Garry Benavidez [facility] CBC WITH DIFF 2022-02-27 19:37:00 Garry Benavidez [facility] HB ECG ROUTINE & RHYTHM STRIP 2022-02-27 19:29:25 Garry Benavidez [facility] NOTICE OF PRIVACY PRACTICES 2022-02-27 19:06:39 Doctor Unassigned, [place] [facility] CONSENT/REFUSAL FOR DIAGNOSIS AND TREATMENT 2022-02-27 19:04:38 Doctor Unassigned, [place] [facility] Encounters Start Date/Time End Date/Time Encounter Type Admission Type Attending [facility] Facility Care Department Encounter ID Source 2024-11-03 16:20:18 Emergency [facility] [id number] [facility] ent 2024-11-03 15:21:00 2024-11-03 18:25:00 Emergency Emergency Behzadi Dave [facility] [id number] [facility] 2024-11-03 15:21:00 2024-11-03 18:25:00 Emergency Emergency Behzadi, Dave [facility] [id number] [facility] 2024-07-11 11:26:00 2024-07-11 13:20:00 Emergency Emergency Amaury Arevalo [facility] [id number] [facility] 2024-07-11 11:26:00 2024-07-11 11:26:00 Emergency [facility] [id number] [facility] 2022-04-27 18:02:00 2022-04-27 20:09:00 Emergency X Garry BENAVIDEZ [facility] ERT [id number] [facility] 2022-04-27 18:02:00 2022-04-27 20:09:00 Emergency Garry Benavidez [facility] [id number] [facility] 2022-02-27 14:12:00 2022-02-27 17:04:00 Emergency X Garry BENAVIDEZ [facility] ERT [id number] [facility] 2022-02-27 14:12:00 2022-02-27 17:04:00 Emergency Garry Benavidezge [facility] [id number] [facility] Results Test Description Test Time Test Comments Results Resul t Comments Source EKG ED Electrocardiogram 2024-10-13 8 11:20:00 [place] [address] Patient Name: Qi Aldana Jr. Medical Record#: [id number] Address: [address] [place] [address] City/State/Zip: [place] [address]: Dave Edward MD Insurance: Self Pay /Age/Sex: 1990/33/M Admit/Reg Date: 11/03/[address]: Yovanny Schmidt NP Location: [facility]/ PCP: PCP,UNKNOWN Date of Service: 11/03/24 Order (s): EKG ED Electrocardiogram CPT Code: 03154 Report Number: [id number] Reason for Exam: CP Sinus rhythm Summary: Normal ECG R06.02 Dictated By: Kevin Whitehead MD 11/03/24 1540 Signed By: Kevin Whitehead MD 11/08/24 1120 TD/TT: 11/03/24 1540 Tech: SVCCPA cc: [email or web address]; PCPUNK* Yovanny Schmidt NP; PCP,UNKNOWN XR chest [id number] 16:37:00[place] [id number] Patient Name: Qi Aldana Jr. Medical Record#: [id number] Address: [address] [place] [address] City/State/Zip: [place] [address]: Dave Edward MD Insurance: Self Pay /Age/Sex: 1990/33/M Admit/Reg Date: 11/03/[address]: Yovanny Schmidt [facility] PCP: PCP,UNKNOWN Date of Service: 11/03/24 Order (s): XR chest 2V CPT Code:39270 Report Number: [id number] Reason for Exam: cp Chest 2 views HISTORY: Chest pain COMPARISON: None FINDINGS: Frontal and lateral views of the chest demonstrate normal cardiomediastinal silhouette. The lungs show no infiltrate, effusion or pneumothorax. The bones are unremarkable IMPRESSION: Unremarkable chest x-ray Dictated By: Tomasz Schreiber MD 11/03/24 1634 Signed By: Tomasz Schreiber MD 0 11/03/24 1637 TD/TT: 11/03/24 1634 Tech: [id number] cc: [id number]; PCPUNK* Yovanny Schmidt NP; PCP,UNKNOWNComplete Blood Count Auto [id number] 15:47:00* Test Item Value Reference Range Interpretation Comme nts White Blood Count (test code = WBCT) 3.8 10*3/uL 4.4-10.5 L Red Blood Count (test code = RBC) 4.61 x10 6/uL 4.10-5.70 N Hemoglobin (test code = HGBT) 15.1 g/dL 13.4-17.4 N Hematocrit (test code = HCTT) 44.3 % 38.7-52.0 N Mean Corpuscular Volume (charlene t code = MCV) 96.10 fL 80.00-100.00 N Mean Corpuscular Hemoglobin (test code = MCH) 32.8 pg 27.0-32.5 H Mean Corpuscular HGB Conc (t est code = MCHC) 34.10 g/dL 32.00-37.50 N RDW Coefficient of Variation (test code = RDWCV) 13.1 % 11.5-14.5 N Platelet Count (test code = PLTT) 130 10*3/uL 140.0-440.0 L Mean Platelet Volume (test c ode = MPV) 11.4 fL Immature Granulocytes % (Aut o) (test code = IMMGRAN%) 0.3 % 0.0-5.0 N Neutrophils % (Auto) (test c ode = NE%) 64.9 % 36.0-70.0 N Lymphocytes % (Auto) (test c ode = LY%) 19.6 % 12.0-44.0 N Monocytes % (Auto) (test cod e = MO%) 13.0 % 0.0-11.0 H Eosinophils % (Auto) (test c ode = EO%) 1.1 % 0.0-7.0 N Basophils % (Auto) (test cod e = BA%) 1.1 % 0.0-2.0 N Immature Granulocytes # (Aut o) (test code = IMMGRAN#) 0.01 x10 3/uL Neutrophils # (Auto) (test c ode = NE#) 2.5 x10 3/uL 1.6-7.4 N Lymphocytes # (Auto) (test c ode = LY#) 0.74 x10 3/uL 0.50-4.60 N Monocytes # (Auto) (test cod e = MO#) 0.49 x10 3/uL 0.00-1.20 N Eosinophils # (Auto) (test c ode = EO#) 0.04 x10 3/uL 0.00-0.74 N Basophils # (Auto) (test cod e = BA#) 0.04 x10 3/uL 0.00-0.21 N nRBC Abs (test code = NRBCA) 0 nRBC Pct (test code = NRBCP) 0 % Comprehensive Metabolic [id number] 15:47:00* Test Item Value Reference Range Interpretation Comme nts SODIUM (test code = NA) 143.0 mmol/L 136.0-145.0 N Potassium,K (test code = K) 3.9 mmol/L 3.0-5.1 N Chloride (test code = CL) 104 mmol/L 98-107 N Carbon Dioxide (test code = CO2) 26 mmol/L 20-31 N Anion Gap (test code = GAP) 13 mmol/L 5-15 N Blood Urea Nitrogen (test code = BUN) 9 mg/dL 9-23 N Creatinine (test code = CREATT) 0.78 mg/dL 0.55-1.02 N Creatinine Clr Calc Pharmacy (test code = CRCLPHA) 127.12 mL/min Estimated Glomerular Filt Rate (test code = EGFR.XX) 122 See_Comment Reported eGFR is based on the CKD-EPI 202 equation thatdoes not use a race coefficient. Additional information canbe found at:[email or web address]_xcx_ egfr_summary_flyer 5.pdf (kidney.org) [Automated message] The system which generated this result transmitted reference range: >=90 ml/min/1.73m2. The reference range was not used to interpret this result as normal/abnormal. BUN/Creatinine Ratio (test code = BCRATIO) 12 ratio 10-20 N Glucose (test code = GLU) 125 mg/dL 74-106 H Osmolality,Calculated (test code = OSMOC) 295.2 Calcium (test code = CA) 9.1 mg/dL 8.3-10.6 N Bilirubin,Total (test code = BILIT) 0.8 mg/dL 0.2-1.1 N Aspartate Amino Transferase (test code = AST) 271 U/L 0-34 H Alanine Aminotransferase (test code = ALT) 260 U/L 10-49 H Total Protein (test code = TP) 7.1 g/dL 5.7-8.2 N Albumin Level (test code = ALB) 4.6 g/dL 3.2-4.8 N Globulin (test code = GLOB) 2.5 mg/dL 2.3-3.5 N Albumin/Globulin Ratio (test code = AGRATIO) 1.8 ratio 0.8-2.0 N Alkaline Phosphatase (test code = ALP) 57 U/L 46-116 N Creatine [id number] 15:47:00* Test Item Value Reference Range Interpretation Comme nts Creatine Kinase (test code = CK) 193 U/L 46-171 H Troponin I High [id number] 15:47:00* Test Item Value Reference Range Interpretation Comme nts Troponin I High Sensitivity (test code = TROPHS) < 3 ng/L 0-45 N Complete Blood Count Auto [id number] 11:44:00* Test Item Value Reference Range Interpretation Comme nts White Blood Count (test code = WBCT) 3.3 10*3/uL 4.8-10.8 L Red Blood Count (test code = RBC) 4.82 x10 6/uL 4.60-6.20 N Hemoglobin (test code = HGBT) 15.9 g/dL 14.0-18.0 N Hematocrit (test code = HCTT) 46.1 % 38.0-52.0 N Mean Corpuscular Volume (charlene t code = MCV) 95.6 fL 80.0-95.0 H Mean Corpuscular Hemoglobin (test code = MCH) 33.0 pg 26.0-32.0 H Mean Corpuscular HGB Conc (t est code = MCHC) 34.5 g/dL 31.0-36.0 N Red Cell Distribution Width (test code = RDW) 12.8 % 11.5-14.5 N Platelet Count (test code = PLTT) 192 10*3/uL 140-440 N Mean Platelet Volume (test c ode = MPV) 10.3 fL 7.5-11.2 N Immature Granulocytes % (Aut o) (test code = IMMGRAN%) 0.3 % Neutrophils % (Auto) (test c ode = NE%) 62.0 % Lymphocytes % (Auto) (test c ode = LY%) 25.1 % Monocytes % (Auto) (test cod e = MO%) 10.2 % Eosinophils % (Auto) (test c ode = EO%) 1.2 % Basophils % (Auto) (test cod e = BA%) 1.2 % Immature Granulocytes # (Aut o) (test code = IMMGRAN#) 0.01 x10 3/uL Neutrophils # (Auto) (test c ode = NE#) 2.1 x10 3/uL 2.7-7.3 L Lymphocytes # (Auto) (test c ode = LY#) 0.8 x10 3/uL 0.8-3.5 N Monocytes # (Auto) (test cod e = MO#) 0.3 x10 3/uL 0.3-0.9 N Eosinophils # (Auto) (test c ode = EO#) 0.0 x10 3/uL 0.0-0.3 N Basophils # (Auto) (test cod e = BA#) 0.0 x10 3/uL 0.0-0.1 N nRBC Abs (test code = NRBCA) 0 10>3/mcL nRBC Pct (test code = NRBCP) 0 % Comprehensive Metabolic [id number] 11:44:00* Test Item Value Reference Range Interpretation Comme nts SODIUM (test code = NA) 136 mmol/L 136-145 N Potassium,K (test code = K) 3.8 mmol/L 3.5-5.1 N Chloride (test code = CL) 103 mmol/L 98-107 N Carbon Dioxide (test code = CO2) 29 mmol/L 21-32 N Anion Gap (test code = GAP) 4 mmol/L 7-16 L Blood Urea Nitrogen (test code = BUN) 9 mg/dL 7-18 N Creatinine (test code = CREATT) 0.7 mg/dL 0.7-1.3 N Estimated Glomerular Filt Rate (test code = EGFR.XX) 126 See_Comment Reported eGFR is based on the CKD-EPI 2020 equation thatdoes not use a race coefficient. Additional information canbe found at:10-21-1859_yep_a gfr_summary_flyer5. pdf (kidney.org) [Automated message] The system which generated this result transmitted reference range: >=90 ml/min/1.73m2. The reference range was not used to interpret this result as normal/abnormal. BUN/Creatinine Ratio (test code = BCRATIO) 13 Glucose (test code = GLU) 99 mg/dL 74-106 N Calcium (test code = CA) 9.1 mg/dL 8.5-10.1 N Aspartate Amino Transferase (test code = AST) 35 IU/L 10-34 H Alanine Aminotransferase (test code = ALT) 53 IU/L 12-78 N Albumin Level (test code = ALB) 4.1 g/dL 3.4-5.0 N Bilirubin,Total (test code = BILIT) 0.3 mg/dL 0.2-1.0 N Total Protein (test code = TP) 7.6 g/dL 6.4-8.2 N Globulin (test code = GLOB) 4 Albumin/Globulin Ratio (test code = AGRATIO) 1.0 ratio 1.2-3.0 L Alkaline Phosphatase (test code = ALP) 51 IU/L 45-122 N Notes Date/Time Note Provider Source 2024-11-03 16:17:00 [facility] C enter [address] [place] [address] Emergency Department Document Signed Patient: Qi Aldana Jr. Medical Record#: [id number] : 1990 Acct:[id number] Age/Sex: 33 / M Admit/Reg Date: 11/03/24 Loc: [facility] Room: Report Number: [id number]: Dave Edward MD <Yovanny Schmidt - Last Filed: 11/03/24 17:03> Arrival - Arrival ED Triage Note: Pt arrived via EMS for headache for 2 hours. pt states that he has been under a lot of stress recently and has headaches at the front and back of his head. axox4, GCS-15, ambulatory with steady gait. PMHX: HTN - EMS Pre-Hospital Finger Stick Blood Glucose Result: 152 History of Present Illness Chief Complaint: Headache Stated Complaint: Headache Primary Care Provider: PCP,UNKNOWN History of Present Illness: Nonspecific headache with chest pain. Patient notes seen by additional emergency center this morning for same. Allergies/Adverse Reactions: No Known Drug Allergies Allergy (Verified 11/03/24 16:00) Physical Exam Physical Exam: Conditional: GCS 15, patient appears awake, alert, no acute distress, heart rate, blood pressure, saturation reviewed in records. Eyes: pupils round equal reactive to light HENT: Normocephalic, atraumatic, no facial tenderness or crepitus, normal external inspection of the ears/nose, no septal hematoma Neck: Trachea midline, no crepitus, CV: Regular rate rhythm bilateral radial pulses 2+, no cyanosis, no edema, no pulsatile abdominal mass Respiratory: Lungs clear bilaterally, respirations even unlabored, no tenderness to palpation, normal inspection of the chest, no crepitus Abdomen: Soft, nontender, no masses, no hernia noted : pelvis stable Lymph: No cervical or subclavicular masses noted Musculoskeletal: - Right upper extremity without focal tenderness, without deformity, with ROM intact - Left upper extremity without focal tenderness, without deformity, with ROM intact - Right lower extremity without focal tenderness, without deformity, with ROM intact - Left lower extremity without focal tenderness, without deformity, with ROM intact Skin: No lacerations or abrasions noted, skin warm to palpation Psychiatric: Normal mood and affect, memory intact Neurologic: Face symmetrical, bilateral upper and lower extremity sensation intact. Results/Orders - Results and Orders Result diagrams: 11/03/24 15:47 11/03/24 15:47 MDM/COURSE Clinical Course: 11/03/24 16:17 Differential Diagnosis: ACS, PE, dissection, AMI, syncope, CVA, pneumonia, arrhythmia, electrolyte abnormalities, pneumothorax, hemothorax, chest trauma, abdominal pain Diagnostics Review: My Independent interpretation of the following tests(s) in the Emergency Department Laboratory Interpretation: Prelim stable EKG Interpretation: 1540 rate 73 no STEMI reviewed by emergency room physician. X-Ray Interpretation (Interpreted by me): NA Advanced Imaging Interpretation (Interpreted by me): NA Make Up Man/Rhythm Strip Interpretation: NA Test Considered but not preformed: NA Patient History and Social Determinants: NA Historians other than patient: NA External Records Reviewed by Me: NA Care significantly affected by the following chronic conditions: Hypertension ED Management, Medications and ED Course: Nontoxic well-appearing 33-year-old male presents emerged part for evaluation of chest discomfort and head pain. He reports similar episode this morning evaluated outside emergency room. States he was provided EKG chest x-ray and IV fluids and was discharged. Had an episode of head pain today with a little bit of dizziness no focal motor or sensory deficits. On emergency room arrival symptoms have since resolved. He notes when he did have the dizziness it was worse when looking left but did not appreciate any vision changes or focal motor or sensory deficits. Re-Evaluations: Comfortable on reevaluation; troponin pending no focal motor or sensory deficits Considered Admission: Disposition per Wander We both agree with the care completed and disposition as I have reviewed the clinical course, results, and plan with 11/03/24 17:03 <Timbo Viramontes - Last Filed: 11/03/24 20:00> History of Present Illness Primary Care Provider: PCP,UNKNOWN Physical Exam Triage Vital Signs: Temperature 37 C 11/03/24 15:21 Temperature Source Oral 11/03/24 15:21 Pulse Rate 85 11/03/24 15:21 Respiratory Rate 16 11/03/24 15:21 Blood Pressure 119/59 L 11/03/24 15:21 Blood Pressure Source Automatic Cuff 11/03/24 15:21 Blood Pressure Mean 79 11/03/24 15:21 O2 Sat by Pulse Oximetry 97 11/03/24 15:21 Oxygen Delivery Method Room Air 11/03/24 15:21 Pain Intensity 10 11/03/24 15:21 Results/Orders - Results and Orders Result diagrams: 11/03/24 15:47 11/03/24 15:47 Lab Testing Results 11/03/24 15:47: WBC 3.8 L, RBC 4.61, Hgb 15.1, Hct 44.3, MCV 96.10, MCH 32.8 H, MCHC 34.10, RDW Coeff of Andres 13.1, Plt Count 130 L, MPV 11.4, Immature Gran % (Auto) 0.3, Neut % (Auto) 64.9, Lymph % (Auto) 19.6, [place] % (Auto) 13.0 H, Eos % (Auto) 1.1, Baso % (Auto) 1.1, Neut # (Auto) 2.5, Lymph # (Auto) 0.74, [place] # (Auto) 0.49, Eos # (Auto) 0.04, Baso # (Auto) 0.04, Immature Gran # (Auto) 0.01, Absolute Nucleated RBC 0, Nucleated RBC % (auto) 0, Sodium 143.0, Potassium 3.9, Chloride 104, Carbon Dioxide 26, Anion Gap 13, BUN 9, Creatinine 0.78, Estimated Creat Clear 127.12, Estimated GFR 122, BUN/Creatinine Ratio 12, Glucose 125 H, Calculated Osmolality 295.2, Calcium 9.1, Total Bilirubin 0.8, AST 271 H, ALT 260 H, Alkaline Phosphatase 57, Total Creatine Kinase 193 H, Troponin I High Sens < 3, Total Protein 7.1, Albumin 4.6, Globulin 2.5, Albumin/Globulin Ratio 1.8 11/03/24 17:05: Troponin I High Sens < 3 Medications Ordered: Discontinued Medications Acetaminophen/Butalbital/Caffeine (Apap/Butalbital/Caffeine 325/50/40 Mg Tablet) 1 tab PO ONCE ONE Stop: 11/03/24 15:47 Last Admin: 11/03/24 16:18 Dose: 1 tab Documented By: PREMA Meclizine HCl (Meclizine 12.5 Mg Tablet) 25 mg PO ONCE ONE Stop: 11/03/24 15:44 Last Admin: 11/03/24 16:18 Dose: 25 mg Documented By: RS EKG Orders: EKG Orders 11/03/24 15:35 EKG ED Electrocardiogram Stat Radiology Orders: Radiology Orders 11/03/24 15:36 CXR [XR chest 2V] Stat MDM/COURSE Vital Signs Temperature 37 C 11/03/24 15:21 Pulse Rate 85 11/03/24 15:21 Respiratory Rate 16 11/03/24 15:21 Blood Pressure 119/59 L 11/03/24 15:21 O2 Sat by Pulse Oximetry 97 11/03/24 15:21 Temperature 37.1 C 11/03/24 17:45 Pulse Rate 70 11/03/24 17:45 Respiratory Rate 16 11/03/24 17:45 Blood Pressure 128/75 11/03/24 17:45 O2 Sat by Pulse Oximetry 100 11/03/24 17:45 Clinical Course: 11/03/24 18:11 Reevaluated patient. Patient with resolution of his headache and dizziness. Time of reevaluation. No focal neurological deficits. Low suspicion for more concerning intracranial abnormality at this time. Workup reviewed with no acute findings. Given resolution of symptoms, I feel it is reasonable for discharge home. Strict return to ER precautions were discussed. Recommend prompt follow-up with neurologist listed in his discharge paperwork for further evaluation. Will give prescriptions for meclizine and Fioricet for as needed use. Both patient as well as father at bedside verbalized understanding of discharge instructions and are in agreement with plan for discharge home today. Disposition: Patient stable for discharge home 11/03/24 20:00 Discharge Plan - Discharge Clinical Impression: Vertigo Chest pain Qualifiers: Chest pain type: other chest pain Qualified Code(s): R07.89 - Other chest pain Disposition: Still in ED Condition: Good Instructions: Vertigo (ED) Care Plan Goals: Your Follow Up Plan: Call your doctor or one listed to make an appointment in 2-3 days as needed. Be certain to mention that you were evaluated here today and that this appointment was recommended. Often clinics will have o verbook appointments to be certain patients get good follow up on emergency department and urgent care visits. When should I be worried and call or return? You should call or return right away if you develop new symptoms or worsening symptoms. It is also reasonable to call your doctor or nurse line for any reason or concern. If you have worsening chest pain, shortness of breath, fever, cough, or other problems you need to be checked again by medical personnel. Often it can take time for these symptoms to improve, but generally it should if it is not serious. When in doubt, you should seek medical attention. Prescriptions: New cupdayglbi-owzwuwroztkaw-vzjn [Fioricet] 50-300-40 mg Capsule 1 cap PO Q8H PRN (Reason: Migraine Headache) 5 Days Qty: 15 RF: 0 Prescription Printed meclizine 25 mg Tablet 25 mg PO TID 5 Days Qty: 15 RF: 0 Prescription Printed Referrals: Farhat Hammonds MD [Staff Physician] - PCP,UNKNOWN [Primary Care Provider] - Forms: Work Release Form (General) Print Language: Citizen Of [place] - Depart Patient Account Discharge Date/Time: 11/03/24 18:25 Dictated By: Yovanny Schmidt NP Signed By: Yovanny Schmidt NP 11/03/24 170 Timbo Viramontes NP 11/03/241999 DD/ 16 TD/TT: 11/03/241616 Tugboat Mate: JAC cc: PCPUNK* PCP,UNKNOWN [facility]
[2025-03-07 13:38] LABS: Absolute Lymphocytes (CBC) 1.1 K/uL (0.7-4.9); Hematocrit 46.1 % (39.6-49.0); Hemoglobin 15.7 g/dL (13.6-17.9); MCH 32.6 pg (27.0-35.0); MCHC 34.1 g/dL (32.0-36.0); MCV 95.3 fL (80-100); MPV 8.7 fL (7.6-11.3); Nucleated RBC Absolute Count 0.0 (0-0); Nucleated Red Blood Cells % 0.2 % (0-0); RBC Red Blood Cell Count 4.83 M/uL (4.33-5.43); White Blood Count 5.00 thou/uL (4.3-10.9)
[2025-03-07] MEDS ORDERED: KETOROLAC 30 MG/ML INJ ONE (13:39)
[2025-03-07] MEDS ORDERED: ONDANSETRON 4 MG/2 ML VIAL ONE (13:39)
[2025-03-07 14:02] LABS: ALT/SGPT 111 U/L (16-61); AST/SGOT 81 U/L (15-37); Albumin 4.3 g/dL (3.4-5.0); Albumin/Globulin Ratio 1.1 (1.1-1.8); Alkaline Phosphatase 55 U/L (45-117); Anion Gap 11.6 mEq/L (5.0-15.0); BUN Blood Urea Nitrogen 6 mg/dL (7-18); Bilirubin Indirect, Calculated 0.5 mg/dL (0.2-0.8); Globulin 4.0 g/dL (2.3-3.5); Glucose Level 136 mg/dL (74-106); Lipase 53 U/L (13-75); Magnesium 1.8 mg/dL (1.6-2.4); NT PRO-BNP 28 pg/mL (<125); Potassium 3.6 mEq/L (3.5-5.1)
[2025-03-07 14:04] LABS: Troponin High Sensitivity < 3.0 pg/mL (<58.9)
--- NOTE | 2025-03-07 14:39 | RAD REPORT ---
EXAMINATION: US Abdomen Exam Limited CLINICAL HISTORY: [facility] MAIN Y ABD PAIN Bed Name: COMPARISON: 02/26/2022 CT chest TECHNIQUE: Limited upper abdominal grayscale and color flow sonographic images. FINDINGS: Gallbladder: No significant distention. No gallstones or sludge. No pericholecystic fluid or hyperemi a. Bile ducts: No intrahepatic or extrahepatic biliary dilatation. Common bile duct measures 4 mm. Liver: Visualized portions of the liver demonstrate normal echogenicity with no suspicious findings. Fluid: No ascites. IMPRESSION: No abnormalities on right upper quadrant ultrasound.
--- NOTE | 2025-03-07 15:08 | RAD REPORT ---
EXAMINATION: ONE VIEW CHEST XR CLINICAL INDICATION: Male, 34 years old.,CHEST PAIN TECHNIQUE: Frontal chest projection is submitted. Examination is limited by patient positioning and t echnique. COMPARISON: 02/14/2025 FINDINGS: The lungs are well inflated and clear. No pneumothorax or sizable effusion. The heart is normal in s ize. Mediastinal contours are unremarkable. IMPRESSION: No acute intrathoracic abnormalities.
--- NOTE | 2025-03-07 15:59 | ER ---
Nurse's Notes [facility] Name: Zackary Aldana Jr Age: 34 yrs Sex: Male : 1990 Arrival Date: 03/07/2025 Time: 13:00 Bed 23 Private MD: Diagnosis: Chest pain, unspecified;Abdominal pain, unspecified Presentation: 03/07 13:09 Chief complaint: Patient states: dizzy, headache, chest pain, stomach pain, blurred ll1 vision, facial numbness that went away. reports these symptoms began a couple months ago, went away and began today. Coronavirus screen: At this time, the client does not indicate any symptoms associated with coronavirus-19. Ebola Screen: No symptoms or risks identified at this time. Initial Sepsis Screen: Does the patient meet any 2 criteria? No. Patient's initial sepsis screen is negative. Does the patient have a suspected source of infection? No. Patient's initial sepsis screen is negative. Risk Assessment: Do you want to hurt yourself or someone else? Patient reports no desire to harm self or others. Onset of symptoms was March 07, 2025. 13:09 Method Of Arrival: Ambulatory ll1 13:09 Acuity: NOEMI 3 ll1 Triage Assessment: 13:11 General: Appears in no apparent distress. uncomfortable, Behavior is calm, cooperative, ll1 appropriate for age. Pain: Complains of pain in chest and abdomen, head. EENT: Reports blurred vision. Neuro: Reports blurred vision dizziness, headache numbness in face. Cardiovascular: Reports chest pain. GI: Reports lower abdominal pain, upper abdominal pain. Historical: - Allergies: 13:11 No Known Allergies; ll1 - PMHx: 13:11 Hypertensive disorder; ll1 - PSHx: 13:11 None; ll1 - Immunization history:: Adult Immunizations up to date. - Infectious Disease History:: Denies. - Social history:: Smoking status: Reported history of juuling and/or vaping. Screenin:36 [facility] ED Fall Risk Assessment (Adult) History of falling in the last 3 months, rg5 including since admission No falls in past 3 months (0 pts) Confusion or Disorientation No (0 pts) Intoxicated or Sedated No (0 pts) Impaired Gait No (0 pts) Mobility Assist Device Used No (0 pt) Altered Elimination No (0 pt) Score/Fall Risk Level 0 - 2 = Low Risk Oriented to surroundings, Maintained a safe environment. Abuse screen: Denies threats or abuse. Nutritional screening: No deficits noted. Tuberculosis screening: No symptoms or risk factors identified. Assessment: 14:36 General: Appears in no apparent distress. uncomfortable, Behavior is calm, cooperative, rg5 appropriate for age. Pain: Complains of pain in chest and abdomen Pain does not radiate. Pain currently is 8 out of 10 on a pain scale. Pain began gradually, 2 hours ago. Neuro: Level of Consciousness is awake, alert, obeys commands, Oriented to person, place, time. Cardiovascular: Reports chest pain, Patient's skin is warm and dry. Rhythm is sinus rhythm. Respiratory: Airway is patent Trachea midline Respiratory effort is even, unlabored. GI: Abdomen is flat, non-distended, Reports lower abdominal pain, upper abdominal pain. : No signs and/or symptoms were reported regarding the genitourinary system. EENT: No signs and/or symptoms were reported regarding the EENT system. 15:40 Reassessment: Patient and/or family updated on plan of care and expected duration. Pain rg5 level reassessed. Patient is alert, oriented x 3, equal unlabored respirations, skin warm/dry/pink. Patient states feeling better. Patient states symptoms have improved. Vital Signs: 13:09 BP 150 / 97; Pulse 87; Resp 16; Temp 98.3; Pulse Ox 100% ; Weight 72.57 kg; Height 5 ll1 ft. 7 in. ; Pain 8/10; 13:19 BP 150 / 95; Pulse 79; Resp 17; Pulse Ox 100% ; Pain 8/10; rg5 14:38 BP 142 / 99; Pulse 69; Resp 18; Pulse Ox 100% ; rg5 15:40 BP 137 / 100; Pulse 69; Resp 18; Pulse Ox 99% ; Pain 0/10; rg5 13:09 Body Mass Index 25.06 (72.57 kg, 170.18 cm) ll1 13:09 Pain Scale: Adult ll1 13:19 Pain Scale: Adult rg5 15:40 Pain Scale: Adult rg5 ED Course: 13:02 Patient arrived in ED. mr 13:03 [facility] Hunter [facility]C [facility]. kb 13:03 Abdi Osborn MD is Attending Physician. kb 13:07 Arm band placed on. ll1 13:11 Triage completed. ll1 13:14 Jaspal Kumar, RN is Primary Nurse. rg5 13:19 Lipase Sent. bc6 13:19 Basic Metabolic Panel Sent. bc6 13:19 CBC with Diff Sent. bc6 13:19 LFT's Sent. bc6 13:19 Magnesium Sent. bc6 13:19 NT PRO-BNP Sent. bc6 13:19 Troponin HS Sent. bc6 13:19 Initial lab(s) drawn, by me, sent to lab. Inserted saline lock: 20 gauge in right bc6 antecubital area, using aseptic technique. Blood collected. Flushed with 10 mL NS. 13:56 US Abdomen Limited In Process Unspecified. EDMS 14:36 Patient has correct armband on for positive identification. Bed in low position. Call rg5 light in reach. Side rails up X 1. Client placed on continuous cardiac and pulse oximetry monitoring. NIBP monitoring applied. Door closed. Noise minimized. Warm blanket given. 14:36 No provider procedures requiring assistance completed. Patient maintains SpO2 rg5 saturation greater than 95% on room air. 14:43 XRAY Chest (1 view) In Process Unspecified. EDMS 16:14 Provided Education on: post er care. rg5 16:14 IV discontinued, bleeding controlled, No redness/swelling at site. Pressure dressing rg5 applied. Administered Medications: 13:42 Drug: Ketorolac IVP 15 mg IVP once Route: IVP; Site: right antecubital; rg5 14:00 Follow up: Response: No adverse reaction; Pain is decreased rg5 13:42 Drug: Ondansetron IVP 4 mg IVP once; over 2 minutes Route: IVP; Site: right antecubital;rg5 15:41 Follow up: Response: No adverse reaction rg5 Medication: 14:36 VIS not applicable for this client. rg5 Outcome: 15:58 Discharge ordered by . kb 16:14 Discharged to home ambulatory, rg5 16:14 Condition: stable 16:14 Discharge instructions given to patient, 16:15 Patient left the ED. rg5 Signatures: Dispatcher [employer] EDCT Lubna Hunter, BIANCA-C DIPLOMATIC INTERPRETER/TRANSLATOR-Phoebe Dubois, Reg Reg Camille Klein, RN RN ll1 Tamia Rviera bc6 Jaspal Kumar, RN RN rg5
--- NOTE | 2025-03-07 15:59 | EDPHYS ---
Physician Documentation [facility] Name: Zackary Aldana Jr Age: 34 yrs Sex: Male : 1990 Arrival Date: 03/07/2025 Time: 13:00 Bed 23 Private MD: ED Physician Abdi Osborn HPI: 03/07 16:04 This 34 yrs old Male presents to ER via Ambulatory with complaints of Chest kb Pain, Numbness Of Face, Vision Problem, Headache, High Blood Pressure. 16:04 Pt is a 34 year old male who presents for chest pain, abdominal pain, nausea that kb started one hour [employer]. States he has had this happen several times in the past, but no one has been able to find the cause. States he hasn't followed up with cardiology yet. . Historical: - Allergies: 13:11 No Known Allergies; ll1 - PMHx: 13:11 Hypertensive disorder; ll1 - PSHx: 13:11 None; ll1 - Immunization history:: Adult Immunizations up to date. - Infectious Disease History:: Denies. - Social history:: Smoking status: Reported history of juuling and/or vaping. ROS: 14:39 Constitutional: As per HPI kb Exam: 14:25 Constitutional: This is a well developed, well nourished patient who is awake, alert, kb and in no acute distress. Head/Face: Normocephalic, atraumatic. ENT: Moist Mucous membranes Cardiovascular: Regular rate Respiratory: Respirations even and unlabored. No increased work of breathing. Talking in full sentences Abdomen/GI: Soft, non-tender. No distention Skin: Warm, dry with normal turgor. Normal color. MS/ Extremity: Pulses equal, no cyanosis. Neurovascular intact. Full, normal range of motion. Neuro: Awake and alert, GCS 15, oriented to person, place, time, and situation. 14:25 ECG was reviewed by the Attending Physician. Vital Signs: 13:09 BP 150 / 97; Pulse 87; Resp 16; Temp 98.3; Pulse Ox 100% ; Weight 72.57 kg; Height 5 ll1 ft. 7 in. ; Pain 8/10; 13:19 BP 150 / 95; Pulse 79; Resp 17; Pulse Ox 100% ; Pain 8/10; rg5 14:38 BP 142 / 99; Pulse 69; Resp 18; Pulse Ox 100% ; rg5 15:40 BP 137 / 100; Pulse 69; Resp 18; Pulse Ox 99% ; Pain 0/10; rg5 13:09 Body Mass Index 25.06 (72.57 kg, 170.18 cm) ll1 13:09 Pain Scale: Adult ll1 13:19 Pain Scale: Adult rg5 15:40 Pain Scale: Adult rg5 MDM: 13:03 Medical Screening Exam initiated kb 15:58 Data reviewed: vital signs, nurses notes. kb 16:02 Differential diagnosis: arrhythmia, acute mi, cholecystitis, cholelithiasis, kb pancreatitis. Consideration of Admission/Observation Escalation of care including admission/observation considered. admission considered but heart score 0. 16:03 Counseling: I had a detailed discussion with the patient and/or guardian regarding the kb historical points, exam findings, and any diagnostic results supporting the discharge/admit diagnosis, the presence of at least one elevated blood pressure reading (>120/80) during this emergency department visit, lab results, radiology results, the need for outpatient follow up, a family practitioner, to return to the emergency department if symptoms worsen or persist or if there are any questions or concerns that arise at home. Special discussion: I have referred the patient to see his PCP for further evaluation of high blood pressure. ED course: Pt states he is feeling better and is ready to go home. 03/07 13:08 Order name: Basic Metabolic Panel; Complete Time: 14:09 kb 03/07 13:08 Order name: CBC with Diff; Complete Time: 13:43 kb 03/07 13:08 Order name: LFT's; Complete Time: 14: kb 03/07 13:08 Order name: Magnesium; Complete Time: 14:09 kb 03/07 13:08 Order name: NT PRO-BNP; Complete Time: 14:09 kb 03/07 13:08 Order name: Troponin HS; Complete Time: 14:09 kb 03/07 13:08 Order name: Lipase; Complete Time: 14:09 kb 03/07 14:40 Order name: Troponin High Sensitivity; Complete Time: 15:58 kb 03/07 13:08 Order name: XRAY Chest (1 view); Complete Time: 15:09 kb 03/07 13:35 Order name: US Abdomen Limited; Complete Time: 14:40 kb 03/07 13:08 Order name: Cardiac monitoring; Complete Time: 13:32 kb 03/07 13:08 Order name: EKG - Nurse/Tech; Complete Time: 13:32 kb 03/07 13:08 Order name: IV Saline Lock; Complete Time: 13:19 kb 03/07 13:08 Order name: Labs collected and sent; Complete Time: 13:19 kb 03/07 13:08 Order name: O2 Per Protocol; Complete Time: 13:32 kb 03/07 13:08 Order name: O2 Sat Monitoring; Complete Time: 13:32 kb EC:25 Rate is 69 beats/min. Rhythm is regular. QRS [place] is Normal. [place] interval is normal at kb 138 msec. QRS interval is normal at 96 msec. QT interval is normal at 424 msec. Administered Medications: 13:42 Drug: Ketorolac IVP 15 mg IVP once Route: IVP; Site: right antecubital; rg5 14:00 Follow up: Response: No adverse reaction; Pain is decreased rg5 13:42 Drug: Ondansetron IVP 4 mg IVP once; over 2 minutes Route: IVP; Site: right antecubital;rg5 15:41 Follow up: Response: No adverse reaction rg5 Disposition Summary: 03/07/25 15:58 Discharge Ordered Notes: Location: Home kb Condition: Stable kb Diagnosis - Chest pain, unspecified kb - Abdominal pain, unspecified kb Followup: kb - With: Emergency Department - When: As needed - Reason: Worsening of condition Followup: kb - With: Private Physician - When: 2 - 3 days - Reason: Recheck today's complaints, Continuance of care, Re-evaluation by your physician Discharge Instructions: - Discharge Summary Sheet kb - Abdominal Pain, Adult, [id number] kb - Nonspecific Chest Pain, Adult, [id number] kb Forms: - Medication Reconciliation Form kb - Antibiotic Education kb - Prescription Opioid Use kb - Patient Portal Instructions kb - Leadership Thank You Letter kb Signatures: Dispatcher [employer] [facility] Lubna Hunter FNP-C FNP-Camille Tate, RN RN ll1 Jaspal Kumar RN RN rg5 Corrections: (The following items were deleted from the chart) 13:35 13:35 Abdomen Limited+[email or web address].BRZ ordered. [facility] 16:04 16:02 Consideration of Admission/Observation Escalation of care including kb admission/observation considered. kb
[2025-03-07 16:20] VITALS: TEMP 98.3
[2025-03-07 16:25] VITALS: BP 137/100; O2SAT 99
== END 2025-03-07 16:15 | disposition home or self-care (01) ==
LOC: ER 13:00
DX: R07.9 Chest pain, unspecified (principal); R10.9 Unspecified abdominal pain
CPT/HCPCS: 36415; 71045; 76705; 80048; 80076; 83690; 83735; 83880; 84484; 85025; 93005; 96374; 96375; 99284; J1885; J2405